=== PATIENT | male | born 1960 | race Caucasian/White ===

== ENCOUNTER → 2017-05-07 | Outpatient (CLI) | payer BC ==
[2017-05-07 14:42] LABS: ALBUMIN 3.9 GM/DL (3.2-5.2); ALBUMIN/GLOBULIN RATIO 1.03 (1.00-1.93); ALKALINE PHOSPHATASE 101 U/L (45-117); ALT/SGPT 45 U/L (12-78); ANION GAP 9 MEQ/L (8-16); AST/SGOT 22 U/L (15-37); BILIRUBIN,TOTAL 0.5 MG/DL (0.2-1.0); BLOOD UREA NITROGEN 33 MG/DL (7-18); CARBON DIOXIDE LEVEL 25 MEQ/L (21-32); CHLORIDE LEVEL 106 MEQ/L (98-107); CHOLESTEROL LEVEL 240 MG/DL (<200); CREATININE FOR GFR 1.19 MG/DL (0.70-1.30); GLOMERULAR FILTRATION RATE > 60.0 (>56); GLUCOSE, FASTING 96 MG/DL (70-105); POTASSIUM SERUM 4.1 MEQ/L (3.5-5.1); SODIUM LEVEL 140 MEQ/L (136-145); TOTAL PROTEIN 7.7 GM/DL (6.4-8.2); TRIGLYCERIDES LEVEL 80 MG/DL (<150)
== END ==
LOC: M SMT 10:14
PROVIDERS: ATTEND Physician Assistant
DX: Z00.00 Encounter for general adult medical examination without abnormal findings (principal); Z13.220 Encounter for screening for lipoid disorders; Z12.5 Encounter for screening for malignant neoplasm of prostate

== ENCOUNTER → 2018-11-12 | Outpatient (CLI) | payer BC ==
--- NOTE | 2018-11-12 19:21 | REP ---
PA and lateral chest three views: Two PA and single lateral views are presented. There are no comparisons. There are no infiltrates or pleural effusions. There is a 4 mm nodular density projected over the anterior end of the right clavicle. I would recommend chest CT for further evaluation. Cardiac size is normal. The josette, mediastinum, skeletal structures are unremarkable. Impression: No acute cardiopulmonary findings. 4 mm right upper lobe lung nodule. Recommend CT for follow-up. Electronically Signed by Migel Evangelista MD 11/12/2018 07:13 P
== END ==
LOC: M WUC 18:52
PROVIDERS: ATTEND Physician Assistant
DX: R91.1 Solitary pulmonary nodule (principal); R05 Cough; R50.9 Fever, unspecified

== ENCOUNTER 2019-03-08 09:56 | Emergency (ER) | payer BC, OTHER ==
[~2019-03-08] VITALS: Ht 172.7 cm; Wt 79.5 kg
[2019-03-08] MEDS ORDERED: ACETAMINOPHEN 500 MG TAB PO ONE (12:15)
[2019-03-08] MEDS ORDERED: KETOROLAC 30 MG/ML VIAL (J1885) IM ONE (12:15)
--- NOTE | 2019-03-08 12:36 | REP ---
RIGHT ANKLE, FOUR VIEWS: There is no evidence of an acute fracture, dislocation or intrinsic bone disease. IMPRESSION: No fracture or dislocation. Electronically Signed by Migel Trujillo MD 03/09/2019 11:33 A
--- NOTE | 2019-03-08 12:37 | REP ---
RIGHT KNEE, FIVE VIEWS: Five views, right knee performed. There is no acute fracture or dislocation. There is mild diffuse joint space narrowing with a moderate degree of chondrocalcinosis diffusely. There is mild spurring of the patellar facets both medially and laterally. IMPRESSION: Arthritis changes without acute fracture or dislocation. Electronically Signed by Migel Trujillo MD 03/09/2019 11:33 A
--- NOTE | 2019-03-08 12:38 | REP ---
RIGHT FOOT, FOUR VIEWS: There is no evidence of an acute fracture, dislocation or intrinsic bone disease. IMPRESSION: No fracture or dislocation. Electronically Signed by Migel Trujillo MD 03/09/2019 11:34 A
--- NOTE | 2019-03-08 12:38 | REP ---
RIGHT LOWER LEG, AP AND LATERAL: AP and lateral views of the right lower leg are performed and demonstrate no evidence of acute fracture or dislocation. There are mild degenerative changes at the knee joint. IMPRESSION: No acute fracture or dislocation. Electronically Signed by Migel Trujillo MD 03/09/2019 11:34 A
[2019-03-08] MEDS ORDERED: KETO10TAB PO (13:01)
[2019-03-08 13:16] VITALS: BP 135/74
== END 2019-03-08 13:25 | disposition home or self-care (01) ==
LOC: M ED 09:56 → EDBD 09:56 → M ED 13:25
DX: S80.01XA Contusion of right knee, initial encounter (principal); S90.01XA Contusion of right ankle, initial encounter; S90.31XA Contusion of right foot, initial encounter; S80.211A Abrasion, right knee, initial encounter; S90.511A Abrasion, right ankle, initial encounter; V03.00XA Pedestrian on foot injured in collision with car, pick-up truck or van in nontraffic accident, initial encounter; Y92.89 Other specified places as the place of occurrence of the external cause
CPT/HCPCS: 73564; 73590; 73610; 73630; 96372; 99284; J1885

== ENCOUNTER 2023-05-30 17:42 | Emergency (ER) | payer BC, OTHER ==
[~2023-05-30] VITALS: Ht 172.7 cm; Wt 77.7 kg
[~2023-05-30 17:42] MED LIST: KETO10TAB PO
[2023-05-31] MEDS ORDERED: LIDOCAINE 1% MDV 20ML VIAL SC ONE (06:35)
[2023-05-31] MEDS ORDERED: BACITRACIN OINTMENT 30GM TUBE TOP ONE (06:55)
[2023-05-31] MEDS ORDERED: CEPH500C PO (06:55)
[2023-05-31 07:10] VITALS: BP 129/74; TEMP 98.4; O2SAT 97
== END 2023-05-31 07:28 | disposition home or self-care (01) ==
LOC: M ED 17:42
DX: S61.211A Laceration without foreign body of left index finger without damage to nail, initial encounter (principal); W31.2XXA Contact with powered woodworking and forming machines, initial encounter; Y92.009 Unspecified place in unspecified non-institutional (private) residence as the place of occurrence of the external cause; Y93.H3 Activity, building and construction; Y99.8 Other external cause status
CPT/HCPCS: 12002; 73140; 99284; J0665